=== PATIENT | male | born 1945 | race Hispanic/Latino ===

== ENCOUNTER 2019-08-08 21:39 | Emergency (ER) | payer OTHER, MEDICARE ==
[~2019-08-08 21:39] MED LIST: AMLO10TA7 PO; ATOR20TA65 PO; FOLI1TAB15 PO; LISI1TAB28 PO; METF-444 PO; METO100T14 PO
[2019-08-08 21:56] LABS: BASOPHILS % (AUTO) 2.8 % (0.0-5.0); EOSINOPHILS % (AUTO) 4.5 % (0.0-8.0); HEMATOCRIT 37.6 % (42-54); LYMPHOCYTES % (AUTO) 30.2 % (21.0-51.0); MEAN CORPUSCULAR HEMOGLOBIN 28.1 pg (27.0-33.0); MEAN CORPUSCULAR HGB CONC 34.1 g/dL (32.0-36.0); MEAN CORPUSCULAR VOLUME 82.4 fL (79-99); NEUTROPHILS % (AUTO) 54.5 % (40.0-77.0); PLATELET COUNT (AUTO) 267 K/uL (130-400); RED BLOOD CELL COUNT(AUTO) 4.57 MIL/uL (4.50-6.20); RED CELL DISTRIBUTION WIDTH 14.1 % (11.0-15.5); WHITE BLOOD COUNT (AUTO) 8.6 K/uL (4.8-10.8)
[2019-08-08 22:09] LABS: CREATININE 1.1 mg/dL (0.5-1.5); POTASSIUM 3.6 mmol/L (3.5-5.1)
[2019-08-08 22:14] LABS: ALBUMIN 3.6 g/dL (3.5-5.0); BILIRUBIN,TOTAL 0.8 mg/dL (0.2-1.0); TOTAL PROTEIN, SERUM 7.2 g/dL (6.0-8.3)
[2019-08-08 22:16] LABS: INR 0.96 (0.85-1.15); PARTIAL THROMBOPLASTIN TIME 27.4 SEC (26.3-35.5); PROTHROMBIN TIME 9.9 SEC (9.6-11.6)
[2019-08-08] MEDS ORDERED: ASPIRIN 81MG TAB.CHEW ONE (22:40)
== END 2019-08-09 01:26 | disposition home or self-care (01) ==
LOC: EDH 21:39
DX: R07.89 Other chest pain (principal); R05 Cough; E11.9 Type 2 diabetes mellitus without complications; I10 Essential (primary) hypertension; Z87.891 Personal history of nicotine dependence
CPT/HCPCS: 36415; 71045; 80053; 82550; 83880; 84484; 85025; 85610; 85730; 93005

== ENCOUNTER → 2020-01-06 | Outpatient (CLI) | payer OTHER, MEDICARE | END | disposition home or self-care (01) | LOC: OIH 10:53 | PROVIDERS: ATTEND Family Medicine | DX: M47.26 Other spondylosis with radiculopathy, lumbar region (principal); M48.061 Spinal stenosis, lumbar region without neurogenic claudication; M16.0 Bilateral primary osteoarthritis of hip; M25.78 Osteophyte, vertebrae; M41.86 Other forms of scoliosis, lumbar region; M25.752 Osteophyte, left hip; M25.751 Osteophyte, right hip; M47.22 Other spondylosis with radiculopathy, cervical region; M48.02 Spinal stenosis, cervical region | CPT/HCPCS: 72040; 72100; 73522 ==

== ENCOUNTER → 2020-04-21 | Outpatient (CLI) | payer OTHER, MEDICARE ==
[~2020-04-21] MED LIST changes: -LISI1TAB28 PO; +LISI1TAB51 PO
== END | disposition home or self-care (01) ==
LOC: OIH 11:58
PROVIDERS: ATTEND Family Medicine
DX: I10 Essential (primary) hypertension (principal); M47.819 Spondylosis without myelopathy or radiculopathy, site unspecified
CPT/HCPCS: 71046

== ENCOUNTER → 2020-11-23 | Outpatient (CLI) | payer OTHER, MEDICARE ==
[~2020-11-23] MED LIST changes: +AMLO-258 PO; -AMLO10TA7 PO
== END | disposition home or self-care (01) ==
LOC: RAH 08:40
PROVIDERS: ATTEND Family Medicine
DX: I35.1 Nonrheumatic aortic (valve) insufficiency (principal)
CPT/HCPCS: 93306; 93356

== ENCOUNTER → 2021-04-14 | Outpatient (CLI) | payer OTHER, MEDICARE ==
[~2021-04-14] MED LIST changes: +IOHEXOL-350 75 ML VIAL IV ONE
== END | disposition home or self-care (01) ==
LOC: RAH 07:49
PROVIDERS: ATTEND Internal Medicine Gastroenterology
DX: K80.20 Calculus of gallbladder without cholecystitis without obstruction (principal); N28.1 Cyst of kidney, acquired; K57.30 Diverticulosis of large intestine without perforation or abscess without bleeding; R63.4 Abnormal weight loss
CPT/HCPCS: 74178; Q9967

== ENCOUNTER 2021-06-07 06:25 | Day surgery (SDC) | payer OTHER, MEDICARE ==
[~2021-06-07] VITALS: Ht 167.6 cm; Wt 73.5 kg
[~2021-06-07 06:25] MED LIST changes: +0.9%NACL 1000ML 1,000 ML IV ONE; -AMLO-258 PO; +ATOR10 PO; -ATOR20TA65 PO; -FOLI1TAB15 PO; -IOHEXOL-350 75 ML VIAL IV ONE; -METO100T14 PO; +METO50TA18 PO; +MULT-1192 PO; +PANT40TA PO; +calcium PO
[2021-06-07 07:44] VITALS: BP 139/62
[2021-06-07] MEDS ORDERED: PROPOFOL 10 MG/ML 20ML VIAL IV ONE ×2 (08:40→08:46)
[2021-06-07 08:56] VITALS: BP 97/43
[2021-06-07 09:02] VITALS: BP 102/62
[2021-06-07 09:08] VITALS: BP 104/59
[2021-06-07 09:13] VITALS: BP 113/59
[2021-06-07 09:18] VITALS: BP 125/75
== END 2021-06-07 09:35 | disposition home or self-care (01) ==
LOC: ENDO 06:25 → DAH 06:25 → ENDO 09:35
PROVIDERS: ATTEND Internal Medicine Gastroenterology
DX: R93.3 Abnormal findings on diagnostic imaging of other parts of digestive tract (principal); Z20.822 Contact with and (suspected) exposure to COVID-19; K29.70 Gastritis, unspecified, without bleeding; R63.4 Abnormal weight loss; K80.20 Calculus of gallbladder without cholecystitis without obstruction; K21.9 Gastro-esophageal reflux disease without esophagitis; E11.22 Type 2 diabetes mellitus with diabetic chronic kidney disease; I12.9 Hypertensive chronic kidney disease with stage 1 through stage 4 chronic kidney disease, or unspecified chronic kidney disease; N18.9 Chronic kidney disease, unspecified; M19.90 Unspecified osteoarthritis, unspecified site; J44.9 Chronic obstructive pulmonary disease, unspecified; E78.5 Hyperlipidemia, unspecified; Z87.891 Personal history of nicotine dependence; Z72.89 Other problems related to lifestyle; Z86.73 Personal history of transient ischemic attack (TIA), and cerebral infarction without residual deficits; Z79.899 Other long term (current) drug therapy; Z68.24 Body mass index [BMI] 24.0-24.9, adult; Z79.82 Long term (current) use of aspirin; Z79.01 Long term (current) use of anticoagulants
CPT/HCPCS: 43237; 43239; 82948 ×2; 87426; 88305; 88342; A4215 ×2; A4221; A4222; A4223; A4606; A4620; A4657 ×2; A4663; J2704 ×2; J7030

== ENCOUNTER → 2022-05-23 | Outpatient (CLI) | payer MEDICARE ==
[~2022-05-23] MED LIST changes: -0.9%NACL 1000ML 1,000 ML IV ONE
== END | disposition home or self-care (01) ==
LOC: RAH 07:13
PROVIDERS: ATTEND Internal Medicine Gastroenterology
DX: R63.4 Abnormal weight loss (principal)
CPT/HCPCS: 78264; A9541

== ENCOUNTER 2022-08-08 12:26 | Emergency (ER) | payer MEDICARE ==
[~2022-08-08] VITALS: Ht 175.3 cm; Wt 86.2 kg
[~2022-08-08 12:26] MED LIST changes: +ACET-2079 PO; +BRIM5DRO OU; +DEXA1TAB PO; +LATA2.5D14 OU; -LISI1TAB51 PO; -METF-444 PO; +METF-910 PO; -MULT-1192 PO; +NAPR-1196 PO; -PANT40TA PO; +PANT40TA54 PO; -calcium PO
[2022-08-08] MEDS ORDERED: ONDANSETRON 4MG INJ IVP ONE (13:00)
[2022-08-08] MEDS ORDERED: 0.9% NACL 500ML IV.SOLN 500 ML IV ONE (13:00)
[2022-08-08 13:51] LABS: BASOPHILS % (AUTO) 1.3 % (0.0-5.0); EOSINOPHILS % (AUTO) 1.5 % (0.0-8.0); HEMATOCRIT 32.7 % (42-54); LYMPHOCYTES % (AUTO) 18.4 % (21.0-51.0); MEAN CORPUSCULAR HGB CONC 33.3 g/dL (32.0-36.0); MEAN CORPUSCULAR VOLUME 84.1 fL (79-99); NEUTROPHILS % (AUTO) 72.3 % (40.0-77.0); PLATELET COUNT (AUTO) 278 K/uL (130-400); RED BLOOD CELL COUNT(AUTO) 3.89 MIL/uL (4.50-6.20); RED CELL DISTRIBUTION WIDTH 13.7 % (11.0-15.5); WHITE BLOOD COUNT (AUTO) 7.9 K/uL (4.8-10.8)
[2022-08-08 14:00] LABS: POTASSIUM 3.5 mmol/L (3.5-5.1)
[2022-08-08 14:04] LABS: ALBUMIN 3.1 g/dL (3.5-5.0)
[2022-08-08] MEDS ORDERED: 0.9% NACL 250ML 250 ML IV SCH (15:00)
[2022-08-08 15:13] LABS: APPEARANCE,URINE CLOUDY (CLEAR); BILIRUBIN,URINE NEGATIVE (NEGATIVE); COLOR,URINE LIGHT-YELLOW (YELLOW); GLUCOSE, URINE (UA) NEGATIVE (NEGATIVE); KETONES,URINE NEGATIVE (NEGATIVE); LEUKOCYTE ESTERASE ,URINE 500 Leu/uL (NEGATIVE); NITRATE,URINE NEGATIVE (NEGATIVE); OCCULT BLOOD,URINE NEGATIVE (NEGATIVE); PH,URINE 6.5 (5.0-8.0); PROTEIN,URINE 10 mg/dL (NEGATIVE); UROBILINOGEN,URINE 0.2 mg/dL (0.2-1.0)
[2022-08-08 15:22] LABS: BACTERIA,URINE RARE /HPF (None Seen); MUCUS,URINE RARE LPF (None Seen); SQUAMOUS EPITHELIAL CELL,UR RARE /HPF (0-2); WBC,URINE 51-100 /HPF (0-1); YEAST,URINE BUDDING RARE /HPF (None Seen)
[2022-08-08] MEDS ORDERED: CEFTRIAXONE 1G VIAL ONE (15:23)
[2022-08-08] MEDS ORDERED: SULF1TAB42 PO (15:29)
[2022-08-08] MEDS ORDERED: ONDA4TAB10 PO (15:29)
[2022-08-08] MEDS ORDERED: CEFTRIAXONE 1G VIAL IVP SCH (15:30)
[2022-08-08 15:44] VITALS: BP 139/67
== END 2022-08-08 15:47 | disposition home or self-care (01) ==
LOC: EDH 12:26
DX: S09.90XA Unspecified injury of head, initial encounter (principal); M54.2 Cervicalgia; H70.90 Unspecified mastoiditis, unspecified ear; N39.0 Urinary tract infection, site not specified; F41.9 Anxiety disorder, unspecified; F32.9 Major depressive disorder, single episode, unspecified; E11.9 Type 2 diabetes mellitus without complications; K21.9 Gastro-esophageal reflux disease without esophagitis; E78.00 Pure hypercholesterolemia, unspecified; I10 Essential (primary) hypertension; Z98.890 Other specified postprocedural states; W06.XXXA Fall from bed, initial encounter; Y93.89 Activity, other specified; Y92.89 Other specified places as the place of occurrence of the external cause; Y99.8 Other external cause status
CPT/HCPCS: 99285; 84484; 80053; 85025; 87077; 87088; 87186; 81001; 36415; 70450; 72125; 96374; 96375; 93005; J0696; J2405

== ENCOUNTER 2022-08-21 12:05 | Emergency (ER) | payer MEDICARE ==
[~2022-08-21] VITALS: Ht 167.6 cm; Wt 62.1 kg
[~2022-08-21 12:05] MED LIST changes: +ONDA4TAB10 PO; +SULF1TAB42 PO
[2022-08-21 12:58] LABS: BASOPHILS % (AUTO) 0.8 % (0.0-5.0); EOSINOPHILS % (AUTO) 3.4 % (0.0-8.0); HEMATOCRIT 32.4 % (42-54); LYMPHOCYTES % (AUTO) 19.8 % (21.0-51.0); MEAN CORPUSCULAR HEMOGLOBIN 28.1 pg (27.0-33.0); MEAN CORPUSCULAR HGB CONC 32.4 g/dL (32.0-36.0); MEAN CORPUSCULAR VOLUME 86.6 fL (79-99); NEUTROPHILS % (AUTO) 70.8 % (40.0-77.0); PLATELET COUNT (AUTO) 243 K/uL (130-400); RED BLOOD CELL COUNT(AUTO) 3.74 MIL/uL (4.50-6.20); RED CELL DISTRIBUTION WIDTH 14.3 % (11.0-15.5); WHITE BLOOD COUNT (AUTO) 6.2 K/uL (4.8-10.8)
[2022-08-21 13:14] LABS: ALBUMIN 3.2 g/dL (3.5-5.0); CREATININE 0.9 mg/dL (0.5-1.5); POTASSIUM 4.2 mmol/L (3.5-5.1); TOTAL PROTEIN, SERUM 7.1 g/dL (6.0-8.3)
[2022-08-21 14:51] LABS: APPEARANCE,URINE CLOUDY (CLEAR); BILIRUBIN,URINE NEGATIVE (NEGATIVE); COLOR,URINE LIGHT-YELLOW (YELLOW); GLUCOSE, URINE (UA) NEGATIVE (NEGATIVE); KETONES,URINE NEGATIVE (NEGATIVE); LEUKOCYTE ESTERASE ,URINE 500 Leu/uL (NEGATIVE); NITRATE,URINE NEGATIVE (NEGATIVE); OCCULT BLOOD,URINE NEGATIVE (NEGATIVE); PROTEIN,URINE NEGATIVE (NEGATIVE); UROBILINOGEN,URINE 0.2 mg/dL (0.2-1.0)
[2022-08-21 15:05] LABS: BACTERIA,URINE RARE /HPF (None Seen); SQUAMOUS EPITHELIAL CELL,UR RARE /HPF (0-2); WBC,URINE 51-100 /HPF (0-1)
[2022-08-21] MEDS ORDERED: CEFU500T67 PO (15:28)
[2022-08-21] MEDS ORDERED: ACET-2893 PO (15:28)
[2022-08-21] MEDS ORDERED: CEFTRIAXONE 1G VIAL IVP ONE (15:30)
[2022-08-21 15:43] VITALS: BP 133/49
== END 2022-08-21 15:47 | disposition home or self-care (01) ==
LOC: EDH 12:05
DX: S09.90XA Unspecified injury of head, initial encounter (principal); N39.0 Urinary tract infection, site not specified; E78.00 Pure hypercholesterolemia, unspecified; I10 Essential (primary) hypertension; Z79.1 Long term (current) use of non-steroidal anti-inflammatories (NSAID); Z79.52 Long term (current) use of systemic steroids; Z79.84 Long term (current) use of oral hypoglycemic drugs; Z86.73 Personal history of transient ischemic attack (TIA), and cerebral infarction without residual deficits; W18.39XA Other fall on same level, initial encounter; Y93.89 Activity, other specified; Y92.89 Other specified places as the place of occurrence of the external cause; Y99.8 Other external cause status
CPT/HCPCS: 99285; 70450; 96374; 71045; 82550; 84484; 80053; 83880; 85025; 87088; 81001; 36415; 72170; 72125; 93005; 84145; J0696

== ENCOUNTER 2022-12-29 11:44 | Emergency (ER) | payer MEDICARE ==
[~2022-12-29] VITALS: Ht 165.1 cm; Wt 65.3 kg
[~2022-12-29 11:44] MED LIST changes: +ACET-2893 PO; +CEFU500T67 PO
[2022-12-29 11:46] VITALS: BP 134/63
[2022-12-29 12:28] LABS: BASOPHILS % (AUTO) 0.9 % (0.0-5.0); EOSINOPHILS % (AUTO) 0.4 % (0.0-8.0); HEMATOCRIT 34.9 % (42-54); LYMPHOCYTES % (AUTO) 13.8 % (21.0-51.0); MEAN CORPUSCULAR HEMOGLOBIN 27.6 pg (27.0-33.0); MEAN CORPUSCULAR HGB CONC 31.8 g/dL (32.0-36.0); MEAN CORPUSCULAR VOLUME 86.8 fL (79-99); MONOCYTES % (AUTO) 8.4 % (3.0-13.0); NEUTROPHILS % (AUTO) 76.2 % (40.0-77.0); PLATELET COUNT (AUTO) 256 K/uL (130-400); RED BLOOD CELL COUNT(AUTO) 4.02 MIL/uL (4.50-6.20); RED CELL DISTRIBUTION WIDTH 15.9 % (11.0-15.5); WHITE BLOOD COUNT (AUTO) 7.4 K/uL (4.8-10.8)
[2022-12-29 12:38] LABS: CREATININE 0.8 mg/dL (0.5-1.5); POTASSIUM 4.1 mmol/L (3.5-5.1)
[2022-12-29 12:42] LABS: ALBUMIN 3.7 g/dL (3.5-5.0); TOTAL PROTEIN, SERUM 7.9 g/dL (6.0-8.3)
[2022-12-29 12:49] LABS: APPEARANCE,URINE TURBID (CLEAR); BILIRUBIN,URINE NEGATIVE (NEGATIVE); COLOR,URINE YELLOW (YELLOW); GLUCOSE, URINE (UA) NEGATIVE (NEGATIVE); KETONES,URINE NEGATIVE (NEGATIVE); LEUKOCYTE ESTERASE ,URINE 500 Leu/uL (NEGATIVE); NITRATE,URINE NEGATIVE (NEGATIVE); OCCULT BLOOD,URINE MODERATE (NEGATIVE); PROTEIN,URINE 100 mg/dL (NEGATIVE); UROBILINOGEN,URINE 0.2 mg/dL (0.2-1.0)
[2022-12-29 13:01] LABS: BACTERIA,URINE Moderate /HPF (None Seen); SQUAMOUS EPITHELIAL CELL,UR None Seen /HPF (0-2)
[2022-12-29] MEDS ORDERED: SULF1TAB42 PO (14:29)
[2022-12-29] MEDS ORDERED: CEFTRIAXONE 1G VIAL IM ONE (14:30)
[2022-12-29] MEDS ORDERED: LIDOCAINE HCL 1% 20 ML VIAL ONE (15:10)
[2022-12-29] MEDS ORDERED: CEFTRIAXONE 1G VIAL ONE (15:10)
== END 2022-12-29 15:41 | disposition home or self-care (01) ==
LOC: EDH 11:44
DX: N39.0 Urinary tract infection, site not specified (principal); I10 Essential (primary) hypertension; E78.00 Pure hypercholesterolemia, unspecified; Z79.899 Other long term (current) drug therapy; Z79.84 Long term (current) use of oral hypoglycemic drugs; Z98.890 Other specified postprocedural states
CPT/HCPCS: 99283; 80053; 85025; 87040 ×2; 87088; 83605; 81001; 36415; 96372; J0696